=== PATIENT | female | born 1950 | race Caucasian/White ===

== ENCOUNTER 2017-08-30 08:43 | Emergency (ER) | payer MEDICARE, OTHER ==
[~2017-08-30] VITALS: Ht 167.6 cm; Wt 104.8 kg
--- NOTE | 2017-08-30 08:50 | NUR ---
[facility] DT SEVERE HEADACHE MOSTLY ON LEFT SIDE OF HEAD X 4 DAYS WORST TODAY. PATIENT NOTED LEFT SIDE OF HEAD-SCALP WITH SEVERE REDNESS,. RASHES LIKE. SKIN INTACY. NO TRAUMA, CONNECTED PT TO TELE MONITOR.
--- NOTE | 2017-08-30 08:52 | NUR ---
SEEN BY MD BARTLETT
[2017-08-30] MEDS ORDERED: METOCLOPRAMIDE HCL 10 MG/2 ML VIAL ONE (08:53)
[2017-08-30] MEDS ORDERED: IBUPROFEN 600 MG TABLET PO ONE ×2 (08:54→09:00)
[2017-08-30] MEDS ORDERED: ACETAMINOPHEN ES 500 MG TABLET ONE (08:54)
[2017-08-30] MEDS ORDERED: ACETAMINOPHEN ES 500 MG TABLET PO ONE (09:00)
[2017-08-30] MEDS ORDERED: METOCLOPRAMIDE HCL 10 MG/2 ML VIAL IV ONE (09:00)
[2017-08-30] MEDS ORDERED: IV NS 0.9% 1,000 ML BAG IV ONE (09:00)
[2017-08-30] MEDS ORDERED: ACYCLOVIR 200 MG CAPSULE PO ONE (09:00)
[2017-08-30] MEDS ORDERED: ACYCLOVIR 200 MG CAPSULE ONE (09:08)
[2017-08-30 09:10] LABS: BASOPHILS % (AUTO) 0.4 % (0.0-2.0); EOSINOPHILS # (AUTO) 0.1 /CMM (0.0-0.7); EOSINOPHILS % (AUTO) 2.1 % (0.0-6.0); HEMATOCRIT 43 % (33-45); HEMOGLOBIN 14.9 g/dL (11.5-14.8); LYMPHOCYTES # (AUTO) 2.1 /CMM (0.8-4.8); LYMPHOCYTES % (AUTO) 29.5 % (20.0-44.0); MEAN CORPUSCULAR HEMOGLOBIN 34 PG (26.0-33.0); MEAN CORPUSCULAR HGB CONC 34 g/dl (31.0-36.0); MEAN CORPUSCULAR VOLUME 97 fL (82-100); MONOCYTES # (AUTO) 0.8 /CMM (0.1-1.30); MONOCYTES % (AUTO) 11.8 % (2.0-12.0); NEUTROPHILS # (AUTO) 3.9 /CMM (1.8-8.9); NEUTROPHILS % (AUTO) 56.2 % (43.0-81.0); PLATELET COUNT (AUTO) 191 /CMM (150-450); RDW COEFFICIENT OF VARIATION 13.5 (11.5-15.0); RED BLOOD CELL COUNT(AUTO) 4.44 MIL/uL (4.0-5.2)
--- NOTE | 2017-08-30 09:12 | NUR ---
IV ACCESS STARTED. BLOOD DRAWN FOR LABS. MEDICATED ORDERED.
[2017-08-30 09:32] LABS: ALBUMIN 3.4 g/dL (3.4-5.0); BILIRUBIN,DIRECT 0.1 mg/dL (0.0-0.2); BILIRUBIN,TOTAL 0.2 mg/dL (0.2-1.0); CALCIUM, SERUM 9.2 mg/dL (8.5-10.1); CREATININE 0.9 mg/dL (0.6-1.3); TOTAL PROTEIN, SERUM 7.1 g/dL (6.4-8.2)
[2017-08-30] MEDS ORDERED: MORPHINE SULFATE INJ 4 MG/ML DISP.SYRIN ONE (10:00)
[2017-08-30] MEDS ORDERED: MORPHINE SULFATE INJ 2 MG/ML DISP.SYRIN IV ONE (10:00)
--- NOTE | 2017-08-30 11:30 | NUR ---
IV removed. Catheter intact and site benign. Pressure and 4x4 applied to site. No bleeding noted.
--- NOTE | 2017-08-30 11:40 | NUR ---
Patient discharged to home in stable condition. Written and verbal after care instructions given. Patient verbalizes understanding of instruction.
[2017-08-30 12:27] VITALS: BP 145/88
== END 2017-08-30 12:27 | disposition home or self-care (01) ==
LOC: ER 08:45
DX: B02.9 Zoster without complications (principal); E11.9 Type 2 diabetes mellitus without complications; I10 Essential (primary) hypertension; Z88.2 Allergy status to sulfonamides
CPT/HCPCS: 36415; 70450-TC; 71045-TC; 80048-TC; 80076-TC; 85025-TC; A4606; J2270; J2765; J7030; Z7610

== ENCOUNTER 2017-11-01 16:32 | Inpatient (IN) | payer MEDICARE, OTHER ==
[~2017-11-01] VITALS: Ht 165.1 cm; Wt 91.9 kg
[2017-11-01 17:03] LABS: BASOPHILS % (AUTO) 0.7 % (0.0-2.0); EOSINOPHILS # (AUTO) 0.1 /CMM (0.0-0.7); EOSINOPHILS % (AUTO) 2.3 % (0.0-6.0); HEMATOCRIT 43 % (33-45); HEMOGLOBIN 14.7 g/dL (11.5-14.8); LYMPHOCYTES # (AUTO) 2.2 /CMM (0.8-4.8); LYMPHOCYTES % (AUTO) 33.8 % (20.0-44.0); MEAN CORPUSCULAR HEMOGLOBIN 34 PG (26.0-33.0); MEAN CORPUSCULAR HGB CONC 35 g/dl (31.0-36.0); MEAN CORPUSCULAR VOLUME 97 fL (82-100); MONOCYTES # (AUTO) 0.5 /CMM (0.1-1.30); MONOCYTES % (AUTO) 8.3 % (2.0-12.0); NEUTROPHILS # (AUTO) 3.6 /CMM (1.8-8.9); NEUTROPHILS % (AUTO) 54.9 % (43.0-81.0); PLATELET COUNT (AUTO) 217 /CMM (150-450); RDW COEFFICIENT OF VARIATION 13.3 (11.5-15.0); WHITE BLOOD COUNT (AUTO) 6.4 K/uL (4.3-11.0)
[2017-11-01 17:13] LABS: CALCIUM, SERUM 9.5 mg/dL (8.5-10.1); CARBON DIOXIDE 29 mmol/L (21-32); CHLORIDE 103 mmol/L (98-107); CREATININE 0.8 mg/dL (0.6-1.3); GLUCOSE 170 mg/dL (74-106); POTASSIUM 4.1 mmol/L (3.5-5.1); SODIUM SERUM 139 mmol/L (136-145); UREA NITROGEN, BLOOD 17 mg/dL (7-18)
[2017-11-01 17:16] LABS: INR 0.95 (0.85-1.15)
[2017-11-01 17:23] LABS: TROPONIN I < 0.017 ng/mL (0.00-0.056)
[2017-11-01] MEDS ORDERED: ASPIRIN 325 MG TABLET ONE (18:30)
[2017-11-01] MEDS ORDERED: ASPIRIN 325 MG TABLET PO ONE (18:30)
[2017-11-01] MEDS ORDERED: OLME20TA13 PO (18:35)
[2017-11-01] MEDS ORDERED: EZET10TA14 PO (18:35)
[2017-11-01] MEDS ORDERED: ZOLP10TA6 PO (18:35)
[2017-11-01] MEDS ORDERED: METF500T4 PO (18:35)
[2017-11-01] MEDS ORDERED: MELO-107 PO (18:35)
[2017-11-01] MEDS ORDERED: *INSULIN REGULAR(HUMULIN R)HUM 100 UNIT/ML VIAL SQ PRN (20:00)
[2017-11-01] MEDS ORDERED: INSULIN REGULAR, HUMAN 100 UNIT/ML 3 ML VIAL SQ PRN (20:00)
[2017-11-01] MEDS ORDERED: hydrALAZINE HCL IV 20 MG VIAL IV PRN (20:00)
[2017-11-01] MEDS ORDERED: DEXTROSE 50%-WATER 50 ML DISP.SYRIN IV PRN (20:00)
[2017-11-01 20:50] LABS: ALBUMIN 3.6 g/dL (3.4-5.0); BILIRUBIN,DIRECT 0.1 mg/dL (0.0-0.2); BILIRUBIN,TOTAL 0.4 mg/dL (0.2-1.0)
[2017-11-01 20:52] LABS: THYROID STIMULATING HORMONE 1.346 uIU/mL (0.358-3.74)
[2017-11-01] MEDS: ACETAMINOPHEN 325 MG TABLET PO SCH (21:20)
[2017-11-01] MEDS: ENOXAPARIN SODIUM 40 MG/0.4 ML DISP.SYRIN SQ SCH (21:20)
[2017-11-01] MEDS: SIMVASTATIN 40 MG TABLET PO SCH (21:21)
[2017-11-01] MEDS: BLOOD SUGAR DIAGNOSTIC 1 EACH STRIP VI SCH (21:31)
[2017-11-01] MEDS ORDERED: BLOOD SUGAR DIAGNOSTIC 1 EACH STRIP IN SCH (22:00)
[2017-11-01 23:05] VITALS: BP 135/68
[2017-11-01 23:54] VITALS: BP 113/63
[2017-11-02] MEDS ORDERED: BLOOD SUGAR DIAGNOSTIC 1 EACH STRIP IN SCH
[2017-11-02 04:46] VITALS: BP 134/76
[2017-11-02] MEDS: BLOOD SUGAR DIAGNOSTIC 1 EACH STRIP VI SCH ×4 (06:19→21:44)
[2017-11-02 08:00] VITALS: BP 124/65
[2017-11-02] MEDS: ASPIRIN EC 325 MG TABLET.DR PO SCH (08:21)
[2017-11-02] MEDS: EZETIMIBE 10 MG TABLET PO SCH (08:21)
[2017-11-02] MEDS: VALSARTAN 80 MG TABLET PO SCH (08:22)
[2017-11-02] MEDS ORDERED: Medication Not On Formulary EA (Olmesartan Medoxomil (Benicar) 20 MG) PO SCH (09:00)
[2017-11-02] MEDS ORDERED: MELOXICAM 7.5 MG TABLET PO PRN (15:30)
[2017-11-02 15:52] VITALS: BP 121/72
[2017-11-02 20:00] VITALS: BP 130/79
[2017-11-02] MEDS: SIMVASTATIN 40 MG TABLET PO SCH (21:35)
[2017-11-02] MEDS: ACETAMINOPHEN 325 MG TABLET PO SCH (21:36)
[2017-11-02] MEDS: ENOXAPARIN SODIUM 40 MG/0.4 ML DISP.SYRIN SQ SCH (21:37)
[2017-11-03] MEDS: BLOOD SUGAR DIAGNOSTIC 1 EACH STRIP VI SCH ×2 (06:08→12:15)
[2017-11-03 07:45] LABS: CHOLESTEROL 155 mg/dL (<200); HDL CHOLESTEROL 74 mg/dL (40-60); LDL 57 mg/dL (0-99); TRIGLYCERIDES 107 mg/dL (30-150)
[2017-11-03 08:00] VITALS: BP 121/66
[2017-11-03] MEDS: VALSARTAN 80 MG TABLET PO SCH (08:20)
[2017-11-03] MEDS: ASPIRIN EC 325 MG TABLET.DR PO SCH (08:20)
[2017-11-03] MEDS: EZETIMIBE 10 MG TABLET PO SCH (08:20)
[2017-11-03 09:55] VITALS: BP 124/68
[2017-11-03] MEDS ORDERED: MECL-102 PO (10:30)
[2017-11-03 16:00] VITALS: BP 114/62
== END 2017-11-03 14:45 | disposition home or self-care (01) | DRG 149 ==
LOC: ER 16:33 → TELE 18:50 → MED 11-02 09:13
PROVIDERS: ADMIT Internal Medicine; ATTEND Internal Medicine
DX: H81.399 Other peripheral vertigo, unspecified ear (principal); E11.9 Type 2 diabetes mellitus without complications; E78.5 Hyperlipidemia, unspecified; I10 Essential (primary) hypertension; M06.9 Rheumatoid arthritis, unspecified; Z87.891 Personal history of nicotine dependence; Z79.4 Long term (current) use of insulin; Z88.2 Allergy status to sulfonamides
CPT/HCPCS: 36415; 70450-TC; 70551-TC; 71045-TC; 80048-TC; 80061-TC; 80076-TC; 80305; 82962-TC; 83880; 84443-TC; 84484-TC; 85025-TC; 85652-TC; 85730-TC; 87081-TC; 92611-TC; 93307-TC; 93880-TC; 97112-TC; 97530-TC; A4606; J1650; J1815; Z7610

== ENCOUNTER → 2022-12-08 | Emergency (ER) | payer MEDICARE, OTHER ==
[~2022-12-08] VITALS: Ht 167.6 cm; Wt 95.3 kg
[~2022-12-08] MED LIST: APIX5TAB4 PO; APIXABAN 5 MG TABLET ONE; EZET10TA16 PO; MECL-159 PO; MELO-107 PO; METF-440 PO; OLME20TA13 PO; ZOLP10TA6 PO
--- NOTE | 2022-12-08 16:50 | NUR ---
Minh Harris able to express her own concerns. Patient stable, VSS. Explained plan of care, pt verbalized agreement.
[2022-12-08 16:51] LABS: BASOPHILS % (AUTO) 0.6 % (0.0-2.0); EOSINOPHILS % (AUTO) 0.8 % (0.0-6.0); HEMATOCRIT 40 % (33-45); HEMOGLOBIN 13.4 g/dL (11.5-14.8); LYMPHOCYTES # (AUTO) 2.3 K/uL (0.8-4.8); LYMPHOCYTES % (AUTO) 31.2 % (20.0-44.0); MEAN CORPUSCULAR HGB CONC 33 g/dl (31.0-36.0); MEAN CORPUSCULAR VOLUME 99 fL (82-100); MONOCYTES # (AUTO) 0.8 K/uL (0.1-1.30); MONOCYTES % (AUTO) 10.4 % (2.0-12.0); NEUTROPHILS # (AUTO) 4.2 K/uL (1.8-8.9); PLATELET COUNT (AUTO) 211 K/uL (150-450); WHITE BLOOD COUNT (AUTO) 7.3 K/uL (4.3-11.0)
[2022-12-08 16:57] LABS: CARBON DIOXIDE 26 mmol/L (21-32); CHLORIDE 104 mmol/L (98-107); GLUCOSE 105 mg/dL (74-106); POTASSIUM 3.7 mmol/L (3.5-5.1); SODIUM SERUM 141 mmol/L (136-145); UREA NITROGEN, BLOOD 26 mg/dL (7-18)
--- NOTE | 2022-12-08 16:57 | NUR ---
CALLED DR. TOREY CHAIREZ LEFT VM
--- NOTE | 2022-12-08 17:38 | NUR ---
CALLED DR. TOREY CHAIREZ LEFT VM
--- NOTE | 2022-12-08 17:54 | NUR ---
DR. CHAIREZ SPEAKING WITH DR. TANG.
[2022-12-08] MEDS: APIXABAN 5 MG TABLET PO SCH (17:55)
--- NOTE | 2022-12-08 17:55 | NUR ---
ADMINISTERED MEDICATION ORDERED, MED VERIFIED WITH 2ND RN
--- NOTE | 2022-12-08 18:35 | NUR ---
CALLED [facility] FOR TRANSPORT ETA 60 MINS.
--- NOTE | 2022-12-08 19:20 | NUR ---
Pt is noted in bed alert, responsive as report is received from the off going nurse that , Pt came from home C/O Left Leg swelling [id number] and +DVT today. Pt care continueas she is due to discharge back to home.
[2022-12-08 20:04] VITALS: BP 134/57
--- NOTE | 2022-12-08 20:11 | NUR ---
Pt is noted off the unit with [facility] unit [facility] as she is been discharge to home with all discharge instructions given.
== END | disposition home or self-care (01) ==
LOC: ER 16:23
DX: I82.4Z1 Acute embolism and thrombosis of unspecified deep veins of right distal lower extremity (principal); I10 Essential (primary) hypertension; E11.9 Type 2 diabetes mellitus without complications; F17.200 Nicotine dependence, unspecified, uncomplicated; Z88.2 Allergy status to sulfonamides; Z79.899 Other long term (current) drug therapy
CPT/HCPCS: 36415; 80048-TC; 85025-TC; 85730-TC